=== PATIENT | male | born 1945 | race Caucasian/White ===

== ENCOUNTER → 2016-07-20 | Day surgery (SDC) | payer MEDICARE ==
[~2016-07-20] MED LIST: ASPI81 PO; CARV6.252 PO; CHOL1CAP6 PO; LACTATED RINGER'S 1,000 ML BAG IV ONE; LEVO100T4 PO; PACE200T4 PO; PROPOFOL 200 MG/20 ML AMP IV ONE
--- NOTE | 2016-07-20 15:21 | GIPROC ---
[facility] [address], [address] COLONOSCOPY PROCEDURE REPORT EXAM DATE: 07/20/2016 PATIENT NAME: Bony Rodriguez MR #: [id number] BIRTHDATE: 1945 ENDOSCOPIST: Alicia Sommers MD ORDER #: [id number] WAREHOUSE PACKER: Cecilia Hayes RN STATUS: outpatient INDICATIONS: The patient is a 70 yr old male here for a colonoscopy due to patient's immediate family history of colon cancer PROCEDURE PERFORMED: Colonoscopy with polypectomy Colonoscopy with ablation MEDICATIONS: None and Per Anesthesia. PREP QUALITY: The Belle Bowel Prep Score was Right colon 2, Mid colon 2, and Left colon 3. Total = 7. PREP TYPE:GoLytely ESTIMATED BLOOD LOSS: None CONSENT: The patient understands the risks and benefits of the procedure and understands that these risks include, but are not limited to: sedation, allergic reaction, infection, perforation and/or bleeding. Alternative means of evaluation and treatment include, among others: physical exam, x-rays, and/or surgical intervention. The patient elects to proceed with this endoscopic procedure. medical equipment was checked for proper function. Hand hygiene and appropriate measures for infection prevention was taken. After the risks, benefits and alternatives of the procedure were thoroughly explained, Informed consent was verified, confirmed and timeout was successfully executed by the treatment team. A digital exam revealed external hemorrhoids The EC-[id number] ([id number]) endoscope was introduced through the anus and advanced to the cecum, which was identified by both the appendix and ileocecal valve. The instrument was then slowly withdrawn as the colon was fully examined. COLON FINDINGS: Two polypoid shaped sessile polyps ranging between 5-9mm in size were found in the ascending colon. A polypectomy was performed using snare cautery. The resection was complete and the polyp tissue was completely retrieved. Destruction of tissue via ablation was attempted. Bleeding from maneuver treated with cautery. Retroflexed views revealed medium internal hemorrhoids The scope was then completely withdrawn from the patient and the procedure terminated. PROCEDURE WITHDRAWAL TIME:6minutes ADVERSE EVENTS: There were no complications. IMPRESSIONS: 1. Two sessile polyps ranging between 5-9mm in size were found in the ascending colon; polypectomy was performed using snare cautery; Destruction of tissue via ablation was attempted 2. Retroflexed views revealed medium internal hemorrhoids 3. Revealed external hemorrhoids RECOMMENDATIONS: 1. Await biopsy results. Biopsy results will not be ready for 7-10 days. If you don't hear from us in two weeks, call our office for results. 2. Continue surveillance 3. Yearly hemoccult RECALL: Return 1 year Colonoscopy, pending biopsy results Alicia Sommers MD eSigned: Alicia Sommers MD 07/20/2016 3:21 PM cc: Ace Novak M.D.
== END | disposition home or self-care (01) ==
LOC: ESDC 12:55
PROVIDERS: ATTEND Internal Medicine Gastroenterology
DX: Z12.11 Encounter for screening for malignant neoplasm of colon (principal); Z80.0 Family history of malignant neoplasm of digestive organs; K64.4 Residual hemorrhoidal skin tags; D12.2 Benign neoplasm of ascending colon; K21.9 Gastro-esophageal reflux disease without esophagitis; K20.9 Esophagitis, unspecified; K29.70 Gastritis, unspecified, without bleeding
CPT/HCPCS: 00740; 00810; 43239; 45382; 45385; 88305; J3010; J7120